=== PATIENT | male | born 1995 | race Caucasian/White ===

== ENCOUNTER 2018-10-29 14:42 | Emergency (ER) | payer SELFPAY ==
[~2018-10-29] VITALS: Ht 174 cm; Wt 93.0 kg
[2018-10-29 14:44] VITALS: Ht 174 cm; Wt 93.0 kg
[2018-10-29] MEDS ORDERED: ONDANSETRON (ODT) 4 MG TAB ODT STA (17:05)
[2018-10-29] MEDS ORDERED: ONDANSETRON 4 MG INJ IV STA (17:11)
[2018-10-29] MEDS ORDERED: SOD CHLORIDE 0.9% 500 ML IV ONE (17:30)
[2018-10-29] MEDS ORDERED: ACETAMINOPHEN 325 MG TAB PO ONE (17:30)
[2018-10-29] MEDS ORDERED: IBUP-1542 PO (18:13)
[2018-10-29] MEDS ORDERED: ONDA4TAB14 PO (18:13)
[2018-10-29] MEDS ORDERED: ACET500C5 PO (18:13)
--- NOTE | 2018-10-29 18:53 | ERD ---
ER Documentation Chief Complaint Chief Complaint LOWER ABDOMINAL PAIN, NAUSEA, RECTAL BLEEDING HPI 23-year-old male patient with no significant past medical history presents to ED complaining of lower abdominal pain, nausea, rectal bleeding that started about 3 days ago. States that he may have eaten some poorly cooked buffalo chicken wings that may have caused his symptoms. States that he has had a few episodes of nonbilious nonbloody vomiting. Patient states that when he wipes there is some bright redblood. Denies any chest pain, shortness of breath, wheezing, dysuria, urgency, frequency, melena, hematemesis, easy bruisability, hematuria. ROS All systems reviewed and are negative except as per history of present illness. Medications Home Meds Active Scripts Ondansetron (Ondansetron Odt) 4 Mg Tab.rapdis, 4 MG PO Q6H PRN for NAUSEA AND/OR VOMITING, #10 TAB Prov:MARY BETH COBB PA-C 10/29/18 Acetaminophen* (Tylophen*) 500 Mg Capsule, 1 CAP PO Q6H PRN for PAIN AND OR ELEVATED TEMP, #20 CAP Prov:MARY BETH COBB PA-C 10/29/18 Ibuprofen* (Motrin*) 600 Mg Tab, 600 MG PO Q6, #30 TAB Prov:MARY BETH COBB PA-C 10/29/18 Allergies Allergies: Coded Allergies: No Known Allergy (Unverified , 06/20/14) PMhx/Soc History of Surgery: No Anesthesia Reaction: No Hx Neurological Disorder: No Hx Respiratory Disorders: No Hx Cardiac Disorders: No Hx Psychiatric Problems: No Hx Miscellaneous Medical Probl: No Hx Alcohol Use: No Hx Substance Use: No Hx Tobacco Use: No FmHx Family History: No diabetes, No coronary disease Physical Exam Vitals Vital Signs Date Temp Pulse Resp B/P (MAP) Pulse Ox O2 O2 Flow FiO2 Time Delivery Rate 10/29/18 98.9 74 18 116/56 97 Room Air 19:23 (76) 10/29/18 101.8 17:29 10/29/18 99.7 106 19 144/86 98 14:44 (105) Physical Exam Const: [place], well-nourished. In no acute distress. Head: Atraumatic, normocephalic Eyes: Normal Conjunctiva without injection. No purulent discharge. ENT: Normal external ear, nose. Moist oropharynx without tonsillar exudates. Non-erythematous pharynx. Uvula midline. No drooling. No trismus. Neck: No cervical midline tenderness. Full range of motion. No meningismus. No cervical lymphadenopathy. No JVD. Resp: Clear to auscultation bilaterally. No wheezing, rhonchi, rales, or crackles. No accessory muscle use. No retractions. Cardio: Regular rate and rhythm. No murmurs, rubs or gallops. Abd: Soft, periumbilical tenderness, non distended. Normal bowel sounds. No palpable masses. No rebound tenderness. No guarding. Negative McBurney's point. Negative psoas sign. Negative obturator sign. Skin: No petechiae or rashes Back: No midline tenderness. No CVA tenderness. Ext: No cyanosis, or edema. Neur: Awake and alert. Normal gait. Normal coordination. Psych: Normal Mood and Affect Result Diagram: 10/29/18 1711 10/29/18 1711 Results 24 hrs Laboratory Tests Test 10/29/18 17:11 White Blood Count 6.7 10^3/ul Red Blood Count 5.33 10^6/ul Hemoglobin 15.7 g/dl Hematocrit 45.5 % Mean Corpuscular Volume 85.4 fl Mean Corpuscular Hemoglobin 29.5 pg Mean Corpuscular Hemoglobin Concent 34.5 g/dl Red Cell Distribution Width 11.4 % Platelet Count 194 10^3/UL Mean Platelet Volume 9.7 fl Immature Granulocytes % 0.900 % Neutrophils % 73.6 % Lymphocytes % 16.1 % Monocytes % 8.6 % Eosinophils % 0.1 % Basophils % 0.7 % Nucleated Red Blood Cells % 0.0 /100WBC Immature Granulocytes # 0.060 10^3/ul Neutrophils # 4.9 10^3/ul Lymphocytes # 1.1 10^3/ul Monocytes # 0.6 10^3/ul Eosinophils # 0.0 10^3/ul Basophils # 0.1 10^3/ul Nucleated Red Blood Cells # 0.0 10^3/ul Urine Color YELLOW Urine Clarity CLEAR Urine pH 5.0 Urine Specific [place] 1.016 Urine Ketones NEGATIVE mg/dL Urine Nitrite NEGATIVE mg/dL Urine Bilirubin NEGATIVE mg/dL Urine Urobilinogen NEGATIVE mg/dL Urine Leukocyte Esterase NEGATIVE Pauly/ul Urine Microscopic RBC 3 /HPF Urine Microscopic WBC 1 /HPF Urine Hemoglobin 2+ mg/dL Urine Glucose NEGATIVE mg/dL Urine Total Protein NEGATIVE mg/dl Stool Occult Blood NEGATIVE Sodium Level 143 mmol/L Potassium Level 4.1 mmol/L Chloride Level 101 mmol/L Carbon Dioxide Level 31 mmol/L Anion Gap 11 Blood Urea Nitrogen 13 mg/dl Creatinine 0.94 mg/dl Est Glomerular Filtrat Rate mL/min > 60 mL/min Glucose Level 122 mg/dl Calcium Level 9.4 mg/dl Total Bilirubin 0.5 mg/dl Direct Bilirubin 0.00 mg/dl Indirect Bilirubin 0.5 mg/dl Aspartate Amino Transf (AST/SGOT) 33 IU/L Alanine Aminotransferase (ALT/SGPT) 57 IU/L Alkaline Phosphatase 111 IU/L Total Protein 8.5 g/dl Albumin 4.7 g/dl Globulin 3.80 g/dl Albumin/Globulin Ratio 1.23 Lipase 25 U/L Current Medications Medications Dose Sig/Emani Start Time Status Last (Trade) Ordered Route PRN Stop Time Admin Dose Reason Admin Ondansetron 4 mg ONCE STAT 10/29/18 Cancel HCl (Zofran ODT 17:05 Odt) 10/29/18 17:06 650 mg ONCE ONCE 10/29/18 DC 10/29/18 Acetaminophen PO 17:30 17:29 (Tylenol 10/29/18 17:31 Tab) Ondansetron 4 mg ONCE STAT 10/29/18 DC 10/29/18 HCl (Zofran IV 17:11 17:29 Inj) 10/29/18 17:13 Sodium 500 ml @ Q1H ONCE 10/29/18 DC 10/29/18 Chloride 500 mls/hr IV 17:30 17:29 10/29/18 18:29 Procedures/MDM 23-year-old male patient with no significant past medical history presents ED complaining of lower abdominal pain that started 3 days ago associated with rectal bleeding, nausea. Patient is afebrile and nontoxic-appearing. Patient had 2 episodes of nonbilious nonbloody vomiting. Patient was further worked up with CBC, CMP, lipase, UA. Patient's pain and symptoms have improved after treatment with 500 mL normal saline, Zofran, Tylenol. CBC: No leukocytosis. No e/o of systemic infection. No e/o anemia. CMP: No e/o severe acidosis, alkalosis, renal failure, diabetic ketoacidosis, liver disease Lipase within normal limits. Urine: No leukocyte esterase, no nitrites, no hematuria. Differentials include gastroenteritis. Low suspicion for testicular torsion, gastritis, GERD, peptic ulcer disease, cholecystitis, choledocholithiasis, cholangitis, pancreatitis, appendicitis, bowel obstruction, ileus, volvulus, nephrolithiasis, pyelonephritis, hepatitis, perforated viscus, diverticulitis, abdominal hernia, acute abdomen, mesenteric ischemia or other emergent con ditions. Diagnosis: Abdominal Pain, Vomiting and Diarrhea Discharge medications: Zofran, Tylenol, Ibuprofen Follow up with primary care physician in 1-2 days. Return in 8-12 hours for a reexamination of the abdomen. Instructed patient to return to the ED sooner for any worsening symptoms. Patient's questions were answered. Patient is hemodynamically stable. Patient understood and agreed with discharge plan. Patient discharged stable. Disclaimer: Inadvertent spelling and grammatical errors are likely due to EHR/dictation software use and do not reflect on the overall quality of patient care. Also, please note that the electronic time recorded on this note does not necessarily reflect the actual time of the patient encounter. Departure Diagnosis: Primary Impression: Abdominal pain Abdominal location: unspecified location Qualified Codes: R10.9 - Unspecified abdominal pain Additional Impression: Vomiting and diarrhea Condition: Stable Patient Instructions: Abdominal Pain, Self-Care for Vomiting and Diarrhea, Diet, Vomiting Or Diarrhea [[id number]] Referrals: [facility] YOU HAVE RECEIVED A MEDICAL SCREENING EXAM AND THE RESULTS INDICATE THAT YOU DO NOT HAVE A CONDITION THAT REQUIRES URGENT TREATMENT IN THE EMERGENCY DEPARTMENT. FURTHER EVALUATION AND TREATMENT OF YOUR CONDITION CAN WAIT UNTIL YOU ARE SEEN IN YOUR DOCTORS OFFICE WITHIN THE NEXT 1-2 DAYS. IT IS YOUR RESPONSIBILITY TO MAKE AN APPOINTMENT FOR FOLOW-UP CARE. IF YOU HAVE A PRIMARY DOCTOR --you should call your primary doctor and schedule an appointment IF YOU DO NOT HAVE A PRIMARY DOCTOR YOU CAN CALL OUR PHYSICIAN REFERRAL HOTLINE AT IF YOU CAN NOT AFFORD TO SEE A PHYSICIAN YOU CAN CHOSE FROM THE FOLLOWING [facility] [address] [facility]. [facility] [address] [facility]. [facility] [address] [facility]. [facility] [address] [facility]. [facility] [address] [facility]. [facility]. [address] [facility]. [facility] YOU HAVE RECEIVED A MEDICAL SCREENING EXAM AND THE RESULTS INDICATE THAT YOU DO NOT HAVE A CONDITION THAT REQUIRES URGENT TREATMENT IN THE EMERGENCY DEPARTMENT. FURTHER EVALUATION AND TREATMENT OF YOUR CONDITION CAN WAIT UNTIL YOU ARE SEEN IN YOUR DOCTORS OFFICE WITHIN THE NEXT 1-2 DAYS. IT IS YOUR RESPONSIBILITY TO MAKE AN APPOINTMENT FOR FOLOW-UP CARE. IF YOU HAVE A PRIMARY DOCTOR --you should call your primary doctor and schedule and appointment IF YOU DO NOT HAVE A PRIMARY DOCTOR YOU CAN CALL OUR PHYSICIAN REFERRAL HOTLINE AT . IF YOU CAN NOT AFFORD TO SEE A PHYSICIAN YOU CAN CHOSE FROM THE FOLLOWING [facility] INSTITUTIONS: [facility] [address] [place] [address] [address], [place] [id number] [place] [address] [address] [place] [address] [facility] URGENT CARE/SPECIALTIES Additional Instructions: Return in 8-12 hours for a reexamination of the abdomen. Call your primary care doctor TOMORROW for an appointment during the next 2-3 days.See the doctor sooner or return here if your condition worsens before your appointment time. MARYB ETH COBB PA-C October 29, 2018 18:53
[2018-10-29 19:23] VITALS: BP 116/56; PULSE 74; RESP 18
== END 2018-10-29 19:25 | disposition home or self-care (01) ==
LOC: FTE 14:42
DX: R10.33 Periumbilical pain (principal); R11.10 Vomiting, unspecified; R19.7 Diarrhea, unspecified
CPT/HCPCS: 80053; 81001; 82270; 83690; 85025; J2405; J7040; 36415; 96374